=== PATIENT | female | born 1990 | race Caucasian/White ===

== ENCOUNTER 2020-04-15 08:38 | Inpatient (IN) | payer OTHER ==
[~2020-04-15] VITALS: Ht 157.5 cm; Wt 81.6 kg
[2020-04-15] MEDS ORDERED: NALOXONE HCL 1MG/ML 2ML SYRINGE ONE (08:56)
[2020-04-15] MEDS ORDERED: SODIUM CHLORIDE 0.9% 1,000 ML IV ONE ×2 (09:00)
[2020-04-15] MEDS ORDERED: NALOXONE HCL 1MG/ML 2ML SYRINGE IV ONE (09:00)
[2020-04-15] MEDS ORDERED: NALOXONE HCL 2 MG in D5W 5% 495 ML IV ONE (09:15)
[2020-04-15 09:43] LABS: Mean Corpuscular Hemoglobin 28.3 pg (28.0-32.0); Mean Corpuscular Hgb Conc. 32.4 g/dL (32.0-36.0); Mean Corpuscular Volume 87.4 fL (80.0-100.0); Red Blood Cells 3.55 10^6/uL (4.0-5.20); Red Cell Distribution Width 14.1 % (11.8-14.3); White Blood Cell 2.6 10^3/uL (4.4-10.8)
[2020-04-15 09:57] LABS: Basophils % (manual) 0 (0.0-2.0); Blast Cells 0; Eosinophils % (manual) 0 (0-7); Monocytes % (manual) 0 (0-12); Platelet Count (auto) 13 10^3/uL (140-450); Promyelocytes % 0; Reactive Lymphocytes 0
[2020-04-15 10:03] LABS: Chloride 105 mmol/L (98-107); Potassium 4.4 mmol/L (3.5-5.1); Sodium 141 mmol/L (136-145)
[2020-04-15 10:09] LABS: Alanine Aminotransferase 28 U/L (13-56); Albumin 3.7 g/dL (3.4-5.0); Alkaline Phosphatase 91 U/L (45-117); Anion Gap 10 (5-15); Aspartate Aminotransferase 26 U/L (15-37); BUN/Creatinine Ratio 9.7; Bilirubin, Total 0.1 mg/dL (0.2-1.0); Blood Alcohol < 3.0 mg/dL (0-5); Blood Urea Nitrogen 17 mg/dL (7-18); Calcium 9.1 mg/dL (8.5-10.1); Carbon Dioxide 26 mmol/L (21-32); GFR African American 44 mL/min; GFR Non-African American 36 mL/min; Glucose 100 mg/dL (74-106); Total Protein 8.9 g/dL (6.4-8.2)
[2020-04-15 10:14] LABS: Amphetamine Screen, Urine POSITIVE (NEGATIVE); Barbiturate Scree,Urine NEGATIVE (NEGATIVE); Benzodiazephine Screen, Urine POSITIVE (NEGATIVE); Cannabinoid Screen, Urine NEGATIVE (NEGATIVE); Cocaine Screen, Urine NEGATIVE (NEGATIVE)
[2020-04-15 10:22] LABS: Opiate Scree,Urine NEGATIVE (NEGATIVE); Phencyclidine Screen, Urine NEGATIVE (NEGATIVE)
[2020-04-15 10:23] LABS: Urine Bacteria NONE SEEN /hpf (None Seen); Urine Blood Negative /uL (Negative); Urine Hyaline Cast MOD /lpf (0 - 2); Urine Mucus FEW (None Seen); Urine Specific Gravity 1.024 (1.001-1.035); Urine WBC 4 /hpf (0 - 5)
[2020-04-15 12:22] LABS: Band Neutrophils % (manual) 15; Lymphocytes % (manual) 22 (10.0-50.0); Metamyelocytes % 2; Myelocytes % 2
[2020-04-15] MEDS ORDERED: cefTRIAXone 1GM/50ML D5W 50 ML IV ONE (15:00)
[2020-04-15] MEDS ORDERED: NITROGLYCERIN 0.4 MG SL TAB SL PRN (16:45)
[2020-04-15] MEDS ORDERED: SODIUM CHLORIDE 0.9% IV ONE (16:45)
[2020-04-15] MEDS ORDERED: MORPHINE SULF INJ 2 MG/ML SYRINGE 1ML IV PRN (16:45)
[2020-04-15] MEDS ORDERED: ONDANSETRON HCL 4 MG/2 ML VIAL IV PRN (16:45)
[2020-04-15] MEDS ORDERED: NALOXONE HCL IV ONE (16:45)
[2020-04-15] MEDS: SODIUM CHLORIDE 0.9% 1,000 ML IV SCH (17:59)
[2020-04-15] MEDS ORDERED: NALOXONE HCL 2 MG in DEXTROSE 495 ML IV SCH ×4 (18:00)
[2020-04-15] MEDS: NALOXONE HCL 2 MG in D5W 5% 495 ML IV SCH (18:49)
[2020-04-15 19:04] LABS: INR 1.08 (0.9-1.15); Partial Thromboplastin Time 29.3 sec (23.0-31.2)
[2020-04-16] MEDS: NALOXONE HCL 2 MG in D5W 5% 495 ML IV SCH ×3 (05:17→19:30)
[2020-04-16] MEDS: SODIUM CHLORIDE 0.9% 1,000 ML IV SCH ×4 (05:17→23:51)
[2020-04-16 07:47] LABS: Basophils # (auto) 0 10 ^3/uL (0-0.2); Basophils % (auto) 0.4 % (0.0-2.0); Eosinophils # (auto) 0.3 10 ^3/uL (0-0.8); Eosinophils % (auto) 2.6 % (0.0-7.0); Hematocrit 32.8 % (36.0-46.0); Hemoglobin 10.7 g/dL (12.2-16.2); Lymphocytes # (auto) 2.4 10 ^3/uL (0.4-5.4); Lymphocytes % (auto) 19.8 % (10.0-50.0); Mean Corpuscular Hemoglobin 28.3 pg (28.0-32.0); Mean Corpuscular Hgb Conc. 32.6 g/dL (32.0-36.0); Mean Corpuscular Volume 86.7 fL (80.0-100.0); Monocytes # (auto) 0.9 10 ^3/uL (0-1.3); Monocytes % (auto) 7.3 % (0.0-12.0); Neutrophils # (auto) 8.3 10 ^3/uL (1.6-8.6); Neutrophils % (auto) 69.9 % (37.0-80.0); Nucleated Red Blood Cells % 0.1 %; Platelet Count (auto) 284 10^3/uL (140-450); Red Blood Cells 3.79 10^6/uL (4.0-5.20); Red Cell Distribution Width 13.8 % (11.8-14.3); White Blood Cell 11.9 10^3/uL (4.4-10.8)
[2020-04-16 08:04] LABS: Potassium 3.4 mmol/L (3.5-5.1)
[2020-04-16 08:10] LABS: BUN/Creatinine Ratio 22.1; Calcium 7.6 mg/dL (8.5-10.1)
[2020-04-16] MEDS ORDERED: PANTOPRAZOLE 40 MG TAB PO SCH (10:00)
[2020-04-16] MEDS: FAMOTIDINE 20 MG TAB PO SCH (11:12)
[2020-04-16] MEDS: FOLIC ACID 1 MG, MULTIPLE VITAMIN 10 ML, MAGNESIUM SULF SDV 50% 8 MEQ, THIAMINE INJ 100... INJ SCH ×5 (12:00)
[2020-04-17 08:19] LABS: Basophils # (auto) 0.1 10 ^3/uL (0-0.2); Basophils % (auto) 0.7 % (0.0-2.0); Eosinophils # (auto) 0.4 10 ^3/uL (0-0.8); Eosinophils % (auto) 3.7 % (0.0-7.0); Hematocrit 35.6 % (36.0-46.0); Hemoglobin 11.9 g/dL (12.2-16.2); Lymphocytes # (auto) 1.9 10 ^3/uL (0.4-5.4); Lymphocytes % (auto) 17.1 % (10.0-50.0); Mean Corpuscular Hemoglobin 28.4 pg (28.0-32.0); Mean Corpuscular Hgb Conc. 33.4 g/dL (32.0-36.0); Mean Corpuscular Volume 85.1 fL (80.0-100.0); Monocytes # (auto) 0.9 10 ^3/uL (0-1.3); Monocytes % (auto) 8.2 % (0.0-12.0); Neutrophils % (auto) 70.3 % (37.0-80.0); Platelet Count (auto) 343 10^3/uL (140-450); Red Blood Cells 4.19 10^6/uL (4.0-5.20); Red Cell Distribution Width 13.5 % (11.8-14.3); White Blood Cell 11.3 10^3/uL (4.4-10.8)
[2020-04-17 08:36] LABS: Albumin 2.6 g/dL (3.4-5.0); Calcium 8.3 mg/dL (8.5-10.1); Potassium 3.8 mmol/L (3.5-5.1)
[2020-04-17 08:41] LABS: BUN/Creatinine Ratio 8.5; Bilirubin, Total 0.2 mg/dL (0.2-1.0); Total Protein 6.6 g/dL (6.4-8.2)
[2020-04-17] MEDS: SODIUM CHLORIDE 0.9% 1,000 ML IV SCH (09:05)
[2020-04-17] MEDS: NALOXONE HCL 2 MG in D5W 5% 495 ML IV SCH (09:27)
[2020-04-17] MEDS: FAMOTIDINE 20 MG TAB PO SCH (10:09)
[2020-04-17] MEDS: FOLIC ACID 1 MG, MULTIPLE VITAMIN 10 ML, MAGNESIUM SULF SDV 50% 8 MEQ, THIAMINE INJ 100... INJ SCH ×5 (13:49)
[2020-04-17 16:00] VITALS: BP 118/79
== END 2020-04-17 16:39 | disposition home or self-care (01) | DRG 812 ==
LOC: ER 08:38 → EDBD 08:38 → OVERFLOW 17:09
PROVIDERS: ADMIT Nurse Practitioner Acute Care; ATTEND Internal Medicine Nephrology
DX: T43.621A Poisoning by amphetamines, accidental (unintentional), initial encounter (principal); T40.1X1A Poisoning by heroin, accidental (unintentional), initial encounter; D61.818 Other pancytopenia; E66.9 Obesity, unspecified; F15.90 Other stimulant use, unspecified, uncomplicated; F11.90 Opioid use, unspecified, uncomplicated; N39.0 Urinary tract infection, site not specified; E87.6 Hypokalemia; F17.210 Nicotine dependence, cigarettes, uncomplicated; G92 Toxic encephalopathy; J45.909 Unspecified asthma, uncomplicated; Y92.89 Other specified places as the place of occurrence of the external cause; Z88.0 Allergy status to penicillin; N17.0 Acute kidney failure with tubular necrosis
CPT/HCPCS: 36415; 70450; 71045; 80048; 80053; 80307; 80320; 81001; 82550; 85007; 85025; 85027; 85610; 85730; 86850; 86900; 86901; 87426; G0378; J0696

== ENCOUNTER 2021-06-03 23:35 | Emergency (ER) | payer OTHER ==
[~2021-06-03] VITALS: Ht 154.9 cm; Wt 77.1 kg
[2021-06-03 23:37] VITALS: BP 137/70
[2021-06-04 01:36] LABS: Urine Amorphous Crystal MOD /hpf (None Seen); Urine Bacteria NONE SEEN /hpf (None Seen); Urine Blood 1+ /uL (Negative); Urine Specific Gravity 1.022 (1.001-1.035); Urine WBC 29 /hpf (0 - 5); Urine WBC Clumps PRESENT /hpf (None Seen)
== END 2021-06-04 06:16 | disposition left against medical advice (07) ==
LOC: ER 23:35
DX: R30.9 Painful micturition, unspecified (principal); Z53.21 Procedure and treatment not carried out due to patient leaving prior to being seen by health care provider
CPT/HCPCS: 81001

== ENCOUNTER 2023-03-08 21:29 | Emergency (ER) | payer MEDICAID, OTHER ==
[~2023-03-08] VITALS: Ht 157.5 cm; Wt 92.3 kg
[2023-03-08 22:19] LABS: Anion Gap 6 (5-15); Carbon Dioxide 29 mmol/L (20-30); Chloride 106 mmol/L (98-107); Sodium 141 mmol/L (136-145)
[2023-03-08 22:20] LABS: Calcium 9.7 mg/dL (8.5-10.1)
[2023-03-08 22:23] LABS: Basophils # (auto) 0.1 10 ^3/uL (0-0.2); Basophils % (auto) 1.3 % (0.0-2.0); Eosinophils # (auto) 0.5 10 ^3/uL (0-0.8); Eosinophils % (auto) 6.6 % (0.0-7.0); Hematocrit 37.2 % (36.0-46.0); Hemoglobin 12.1 g/dL (12.2-16.2); Lymphocytes # (auto) 3.5 10 ^3/uL (0.4-5.4); Lymphocytes % (auto) 43.7 % (10.0-50.0); Mean Corpuscular Hemoglobin 27.6 pg (28.0-32.0); Mean Corpuscular Hgb Conc. 32.5 g/dL (32.0-36.0); Mean Corpuscular Volume 84.8 fL (80.0-100.0); Monocytes # (auto) 0.5 10 ^3/uL (0-1.3); Monocytes % (auto) 6.8 % (0.0-12.0); Neutrophils # (auto) 3.4 10 ^3/uL (1.6-8.6); Neutrophils % (auto) 41.6 % (37.0-80.0); Nucleated Red Blood Cells % 0.1 %; Red Blood Cells 4.39 10^6/uL (4.0-5.20); Red Cell Distribution Width 14.3 % (11.8-14.3); White Blood Cell 8.1 10^3/uL (4.4-10.8)
[2023-03-08 22:24] LABS: Glucose 83 mg/dL (74-106)
[2023-03-08 22:25] LABS: Blood Alcohol 4.6 mg/dL (<10); Blood Urea Nitrogen 20 mg/dL (9-23)
[2023-03-08 23:32] VITALS: BP 121/63; PULSE 76; RESP 18; TEMP 98; O2SAT 95
[2023-03-08 23:56] LABS: Amphetamine Screen, Urine Pos (NEGATIVE); Barbiturate Scree,Urine Neg (NEGATIVE); Benzodiazephine Screen, Urine Neg (NEGATIVE); Cannabinoid Screen, Urine Neg (NEGATIVE); Cocaine Screen, Urine Neg (NEGATIVE); Opiate Scree,Urine Neg (NEGATIVE)
[2023-03-08 23:57] LABS: Phencyclidine Screen, Urine Neg (NEGATIVE)
[2023-03-09] MEDS ORDERED: LIDOCAINE 1% HCL (LOCAL ANESTH.) INJ 20ML MDV ID ONE (00:30)
== END 2023-03-09 00:45 | disposition home or self-care (01) ==
LOC: ER 21:29
DX: F15.10 Other stimulant abuse, uncomplicated (principal); J45.909 Unspecified asthma, uncomplicated; F17.210 Nicotine dependence, cigarettes, uncomplicated; Z00.00 Encounter for general adult medical examination without abnormal findings; Z88.0 Allergy status to penicillin; Z79.899 Other long term (current) drug therapy
CPT/HCPCS: 36415; 71046; 80048; 80307; 80320; 85025

== ENCOUNTER 2023-03-20 01:00 | Emergency (ER) | payer MEDICAID ==
[~2023-03-20] VITALS: Ht 154.9 cm; Wt 90.1 kg
[2023-03-20 01:42] LABS: Basophils # (auto) 0.1 10 ^3/uL (0-0.2); Basophils % (auto) 0.4 % (0.0-2.0); Eosinophils # (auto) 0.1 10 ^3/uL (0-0.8); Eosinophils % (auto) 0.4 % (0.0-7.0); Hematocrit 33.9 % (36.0-46.0); Hemoglobin 10.9 g/dL (12.2-16.2); Lymphocytes # (auto) 1.2 10 ^3/uL (0.4-5.4); Lymphocytes % (auto) 8.2 % (10.0-50.0); Mean Corpuscular Hemoglobin 27.3 pg (28.0-32.0); Mean Corpuscular Hgb Conc. 32.1 g/dL (32.0-36.0); Mean Corpuscular Volume 85.1 fL (80.0-100.0); Neutrophils # (auto) 12.3 10 ^3/uL (1.6-8.6); Red Blood Cells 3.99 10^6/uL (4.0-5.20); Red Cell Distribution Width 14.7 % (11.8-14.3); White Blood Cell 14.6 10^3/uL (4.4-10.8)
[2023-03-20 02:05] LABS: Alanine Aminotransferase 38 U/L (7-40); Albumin 4.5 g/dL (3.2-4.8); Alkaline Phosphatase 66 U/L (46-116); Anion Gap 7 (5-15); Aspartate Aminotransferase 28 U/L (13-40); BUN/Creatinine Ratio 16.2 (10.0-20.0); Bilirubin, Total 0.3 mg/dL (0.2-1.0); Blood Urea Nitrogen 12 mg/dL (9-23); Calcium 9.1 mg/dL (8.7-10.4); Carbon Dioxide 28 mmol/L (20-30); Chloride 101 mmol/L (98-107); Glucose 103 mg/dL (74-106); Potassium 3.8 mmol/L (3.5-5.1); Sodium 136 mmol/L (136-145)
[2023-03-20 02:06] LABS: Total Protein 7.4 g/dL (5.7-8.2)
[2023-03-20 03:04] LABS: Amphetamine Screen, Urine Pos (NEGATIVE); Barbiturate Scree,Urine Neg (NEGATIVE); Benzodiazephine Screen, Urine Neg (NEGATIVE); Cannabinoid Screen, Urine Neg (NEGATIVE); Cocaine Screen, Urine Pos (NEGATIVE); Opiate Scree,Urine Neg (NEGATIVE); Phencyclidine Screen, Urine Neg (NEGATIVE)
[2023-03-20 03:29] LABS: Urine Bacteria FEW /hpf (None Seen); Urine Blood Negative /uL (Negative); Urine Clarity Clear (Clear); Urine Color Yellow (Yellow); Urine Mucus FEW (None Seen); Urine Protein, UAD TRACE (Negative); Urine Specific Gravity 1.024 (1.001-1.035); Urine Urobilinogen Normal (Negative); Urine WBC 2 /hpf (0 - 5); Urine pH 8.5 (5.0-8.0)
[2023-03-20] MEDS ORDERED: HYDROcodone-ACET 10/325MG TAB PO ONE (03:45)
[2023-03-20] MEDS ORDERED: KETOROLAC TROMETH 60MG/2ML VIAL IM ONE (03:45)
[2023-03-20] MEDS ORDERED: HYDR25CA PO (03:48)
[2023-03-20 04:17] VITALS: BP 122/68; PULSE 109; RESP 21; TEMP 98.8; O2SAT 98
== END 2023-03-20 04:22 | disposition home or self-care (01) ==
LOC: ER 01:00
DX: F11.23 Opioid dependence with withdrawal (principal); R51.9 Headache, unspecified; M79.605 Pain in left leg; M79.604 Pain in right leg; J45.909 Unspecified asthma, uncomplicated; F17.210 Nicotine dependence, cigarettes, uncomplicated; Z88.0 Allergy status to penicillin
CPT/HCPCS: 36415; 80053; 80307; 81001; 85025